=== PATIENT | female | born 1995 | race Caucasian/White ===

== ENCOUNTER → 2017-02-10 | Outpatient (CLI) | payer OTHER ==
--- NOTE | 2017-02-10 16:03 | DIAGNOSTIC IMAGING REPORT ---
(RENAL)RETROPERITON COMP HISTORY: 21 years-old Female PYELONEPHRITIS acute pyelonephritis. COMPARISON: None available TECHNIQUE: Multiple real-time sonographic images of the kidneys and urinary bladder were obtained assessing grayscale appearance and color flow. FINDINGS: The right kidney measures 9.9 x 3.5 x 4.5 cm and is unremarkable without renal calculi, hydronephrosis or focal renal mass lesion. Cortical medullary differentiation is preserved. The left kidney measures 9.9 x 4.4 x 4.4 cm and is also unremarkable without renal calculi, hydronephrosis or focal renal mass lesion. Cortical medullary differentiation is preserved. There is nondistention of the urinary bladder. IMPRESSION: 1. Unremarkable sonographic appearance of the kidneys without renal calculi or hydronephrosis. 2. Nondistention of the urinary bladder. The above report was generated using voice recognition software. It may contain grammatical, syntax or spelling errors. Electronically signed by: Andrew Bone M.D. 02/10/2017 4:02 PM Dictated Date/Time: 02/10/2017 3:59 PM
== END | disposition home or self-care (01) ==
LOC: C.ULTR 15:22
PROVIDERS: ATTEND Physician Assistant
DX: N12 Tubulo-interstitial nephritis, not specified as acute or chronic (principal)